=== PATIENT | female | born 1995 | race Hispanic/Latino ===

== ENCOUNTER 2017-06-20 20:25 | Emergency (ER) | payer OTHER ==
[2017-06-20 20:51] VITALS: BP 118/76; PULSE 77; RESP 16; TEMP 97.8; O2SAT 98
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
--- NOTE | 2017-06-21 09:28 | RAD ---
PROCEDURE: Cervical Spine Radiographs. HISTORY: Pain. COMPARISON: None. FINDINGS: BONES: Straightening of the normal cervical lordosis. No fracture. Dens Intact. DISC SPACES: Normal. SOFT TISSUES: Normal. No prevertebral soft tissue swelling. OTHER FINDINGS: None. IMPRESSION: Straightening of the normal cervical lordosis may relate to positioning/spasm. No demonstrated fracture or dislocation.
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
== END 2017-06-20 23:30 | disposition home or self-care (01) ==
LOC: H.ER 20:25
DX: S60.041A Contusion of right ring finger without damage to nail, initial encounter (principal); S16.1XXA Strain of muscle, fascia and tendon at neck level, initial encounter; S60.00XA Contusion of unspecified finger without damage to nail, initial encounter; S39.012A Strain of muscle, fascia and tendon of lower back, initial encounter; V43.62XA Car passenger injured in collision with other type car in traffic accident, initial encounter; Y92.410 Unspecified street and highway as the place of occurrence of the external cause; F32.9 Major depressive disorder, single episode, unspecified; F41.9 Anxiety disorder, unspecified